=== PATIENT | male | born 1985 | race Caucasian/White ===

== ENCOUNTER → 2017-07-27 | Outpatient (CLI) | payer BC ==
--- NOTE | 2017-07-28 10:40 | PCVCIMAG ---
APPROVED REPORT Study performed: 07/27/2017 15:47:08 EXAM: Comprehensive 2D, Doppler, and color-flow Echocardiogram Patient Location: Echo lab Room #: 2Status: routine BSA: 1.86 HR: 60 bpmBP: 108/84 mmHg Rhythm: NSR Other Information Study Quality: Good Indications Bradycardia Chest Pain 2D Dimensions LVEF(%): 73.08 (>50%) IVSd: 7.67 (7-11mm)LVOT Diam: 20.81 (18-24mm) LVDd: 47.70 mm PWd: 7.58 (7-11mm)Ascending Ao: 21.32 (22-36mm) LVDs: 27.60 (25-40mm) Left Atrium: 31.26 (27-40mm) Aortic Root: 18.55 mm LV Single Plane 4CH: 56.59 % LV Single Plane 2CH: 63.13 %Alcaraz's LVEF: 59.86 % Biplane EF: 58.6 % Volumes Left Atrial Volume (Systole) Single Plane 4CH: 55.99 mLSingle Plane 2CH: 40.45 mL Biplane LA Volume: 48.00 mLLA ESV Index: 26.00 mL/m2 Aortic Valve AoV Peak Jax.: 0.95 m/s AO Peak Gr.: 3.60 mmHgLVOT Max P.98 mmHg LVOT Max V: 0.86 m/s KURTIS Vmax: 3.10 cm2 Mitral Valve E/A Ratio: 2.3 MV Decel. Time: 157.96 ms MV E Max Jax.: 0.65 m/s MV A Jax.: 0.28 m/s IVRT: 76.12 ms TDI E/Lateral E': 3.82E/Medial E': 4.33 Medial E' Jax.: 0.15 m/s Lateral E' Jax.: 0.17 m/s Pulmonary Valve PV Peak Jax.: 0.90 m/sPV Peak Gr.: 3.21 mmHg Pulmonary Vein P Vein S: 0.39 m/sP Vein A: 0.20 m/s P Vein D: 0.73 m/sP Vein A Dur.: 76.1 msec P Vein S/D Ratio: 0.53 Tricuspid Valve TV Vmax: 0.93 m/s Left Ventricle The left ventricle is normal size. There is normal LV segmental wall motion. There is normal left ventricular wall thickness. Left ventricular systolic function is normal. The left ventricular ejection fraction is within the normal range. LVEF is 55-60%. The left ventricular diastolic function is normal. Right Ventricle The right ventricle is normal size. The right ventricular systolic function is normal. Atria The left atrium size is normal. The right atrium size is normal. Aortic Valve The aortic valve is normal in structure. No aortic regurgitation is present. There is no aortic valvular stenosis. Mitral Valve The mitral valve is normal in structure. There is no mitral valve regurgitation noted. No evidence of mitral valve stenosis. Tricuspid Valve The tricuspid valve is normal in structure. Trace tricuspid regurgitation. Unable to assess PA pressure. Pulmonic Valve The pulmonary valve is normal in structure. Trace to mild pulmonic regurgitation. Great Vessels The aortic root is normal in size. The ascending aorta is normal in size. IVC is normal in size and collapses with >50% inspiration Pericardium There is no pericardial effusion. There is no pleural effusion. <Conclusion> The left ventricle is normal size. LVEF is 55-60%. The left ventricular diastolic function is normal. The right ventricle is normal size. The left atrium size is normal. The aortic valve is normal in structure. There is no mitral valve regurgitation noted. Trace tricuspid regurgitation. Unable to assess PA pressure. The aortic root is normal in size. There is no pericardial effusion.
--- NOTE | 2017-07-29 16:29 | PCVCIMAG ---
APPROVED REPORT Patient Location: Echo lab- [facility] STRESS TEST Room #: 2 Stress Nurse: Marry Mejia RN Indications: Chest pain,Bradycardia,anemia The patient exercised according to the [facility] protocol for 18:00 mins; achieving a work level of 20.7 METS. The resting heart rate of 60 bpm soha to a maximal heart rate of 190 bpm. This value represents 99% of the maximal, age-predicted heart rate. The resting blood pressure of 108/84 mmHg, soha to a maximum of 134/58 mmHg. The exercise test was stopped due to fatigue. Conclusion #1 no production of chest pain or angina #2 no diagnostic EKG changes #3 excellent exercise tolerance with appropriate hemodynamic response Negative treadmill stress test no evidence of ischemia ectopy exhibiting superior exercise tolerance
== END | disposition home or self-care (01) ==
LOC: PCVCINTER 15:22
PROVIDERS: ATTEND Internal Medicine Cardiovascular Disease
DX: I07.1 Rheumatic tricuspid insufficiency (principal)
CPT/HCPCS: 93017; 93306